=== PATIENT | male | born 1965 | race Hispanic/Latino ===

== ENCOUNTER → 2017-10-24 | Outpatient (CLI) | payer OTHER ==
--- NOTE | 2017-10-24 10:27 | Diagnostic Imaging Report ---
PROCEDURE:TESTICULAR DOPPLER ULTRASOUND COMPARISON:None. INDICATIONS:Testicular Pain TECHNIQUE: Rubalcava-scale and color doppler images of the testicles and scrotal contents were obtained. Duplex imaging with spectral waveform analysis was performed of the testicular arteries and veins. FINDINGS: See conclusion CONCLUSION: Refer to "[facility] TESTICULAR" also from 10/24/2017 for full dictated report. Dictated by: Isak Davidson M.D. on 10/24/2017 at 10:29 Electronically approved by: Isak Davidson M.D. on 10/24/2017 at 10:29
--- NOTE | 2017-10-24 10:27 | Diagnostic Imaging Report ---
PROCEDURE:TESTICULAR ULTRASOUND COMPARISON:None. INDICATIONS:Testicular Pain TECHNIQUE: Rubalcava-scale and color doppler images of the testicles and scrotal contents were obtained. Duplex imaging with spectral waveform analysis was performed of the testicular arteries and veins. FINDINGS: RIGHT SCROTUM: Testicle: 4.3 x 2.3 x 3 cm. Uniform parenchymal echotexture. Normal arterial and venous wave forms by spectral waveform analysis. No focal mass. Epididymal head: 0.9 x 0.5 x 0.9 cm. 0.3 cm epididymal head cyst or spermatocele. Hydrocele: None Varicocele: None LEFT SCROTUM: Testicle: 4.4 x 2 x 3.9 cm. Uniform parenchymal echotexture. Normal arterial and venous waveforms by spectral waveform analysis. No focal mass. Epididymal head: 1 x 0.6 x 0.8 cm. Hydrocele: None Varicocele: None CONCLUSION: 3 mm right epididymal head cyst versus spermatocele. Otherwise unremarkable sonographic appearance of the testes. Dictated by: Isak Davidson M.D. on 10/24/2017 at 10:29 Electronically approved by: Isak Davidson M.D. on 10/24/2017 at 10:29
== END ==
LOC: US 08:46
PROVIDERS: ATTEND Urology
DX: G89.29 Other chronic pain (principal); N50.819 Testicular pain, unspecified
CPT/HCPCS: 76870; 93976